=== PATIENT | male | born 1985 | race African-American/Black ===

== ENCOUNTER 2024-01-01 11:56 | Emergency (ER) | payer OTHER, SELFPAY ==
--- NOTE | ~2024-01-01 | XR_ITS ---
XR chest 2V Ordering provider: Kory Burrell MD History: 38 years Male with . cp SINCE THIS MORNING, HX OF SMOKING . Comparison: None. FINDINGS: MEDIASTINUM: The cardiac silhouette is not enlarged. LUNGS: No infiltrates, effusions or pneumothorax. OTHER: No free air under the diaphragm. IMPRESSION: No acute cardiopulmonary pathology. Reviewed, dictated and finalized at location A.
--- NOTE | 2024-01-01 11:57 | ECG_ITS ---
Test Date: 2024-01-01 12:03:22 Measurements Intervals [place] Rate: 73 P: 67 NH: 155 QRS: 66 QRSD: 106 T: 51 QT: 390 QTc: 430 Interpretive Statements SINUS RHYTHM CANNOT R/O SEPTAL INFARCT, AGE INDETERMINATE ABNORMAL ECG No previous ECG available for comparison Electronically Signed On 01-01-2024 12:58:49 CDT by Jakob Kim D.O.
[2024-01-01 11:58] VITALS: BP 103/69; PULSE 74; RESP 11; TEMP 36.3; O2SAT 99
[2024-01-01] MEDS: Please add drug allergy info to patient profile. 1 EACH XX (12:07)
[2024-01-01 12:08] VITALS: PULSE 70; O2SAT 100
[2024-01-01 12:15] LABS: Basophils Percent Auto 0.2 % (0.2-1.2); Eosinophils Absolute Auto 0.1 K/mm3 (0-0.3); Eosinophils Percent Auto 2.2 % (0-4.4); Hematocrit 42.4 % (42.0-52.0); Hemoglobin 14.8 g/dL (14.0-18.0); Immature Granulocyte Absolute 0.02 K/mm3 (0.00-0.031); Immature Granulocyte Percent A 0.3 % (0-0.5); Lymphocytes Percent Auto 31.8 % (18.3-44.2); Mean Corpuscular HGB Conc 34.9 g/dl (32-36); Mean Corpuscular Hemoglobin 29.4 pg (26-34); Mean Corpuscular Volume 84.1 fl (80-100); Mean Platelet Volume 9.4 fl (7.4-10.4); Monocytes Absolute Auto 0.7 K/mm3 (0.1-0.6); Monocytes Percent Auto 11.1 % (2.6-8.5); Neutrophils Absolute Auto 3.3 K/mm3 (1.3-6.7); Neutrophils Percent Auto 54.4 % (45.5-73.1); Platelet Count Result 198 k/mm3 (150-375); Red Blood Count 5.04 M/mm3 (4.6-6.20); Red Cell Distribution Width 17.1 % (11.5-14.5)
[2024-01-01 12:24] LABS: Alanine Aminotransferase 15 U/L (6-50); Albumin Level 4.7 g/dL (3.5-5.1); Alkaline Phosphatase 77 U/L (38-126); Anion Gap 10 mmol/L (4-12); Aspartate Amino Transferase 23 U/L (17-59); Bilirubin,Total 0.4 mg/dL (0.2-1.3); Blood Urea Nitrogen 9 mg/dL (9-20); Calcium 9.2 mg/dL (8.4-10.2); Carbon Dioxide 29 mmol/L (22-30); Chloride 98 mmol/L (98-107); Estimated CRCL calculation 163 ml/min; Estimated Glomerular Filt Rate > 60; Glucose 115 mg/dL (65-110); Lipase 135 U/L (23-300); Potassium 5.1 mmol/L (3.4-5.0); Sodium 137 mmol/L (137-145)
[2024-01-01 12:26] LABS: Partial Thromboplastin Time 29.2 Seconds (22.3-36.8); Prothrombin Time 13.2 Seconds (11.1-14.7)
[2024-01-01 12:36] LABS: Troponin I < 0.012 ng/mL (0.000-0.034)
--- NOTE | 2024-01-01 13:30 | ED.CHESTPAIN ---
HPI - Chest Pain General Chief Complaint: Chest Pain Stated Complaint: cp Time Seen by Provider: 01/01/24 12:02 History of Present Illness HPI narrative: 38-year-old male presenting with chest pain. States that he woke up this morning with heavy chest pain. States that is worse when he lays down. No shortness of breath or lightheadedness. No leg swelling. Not worsened with exertion. States that he did have some fevers and rhinorrhea earlier this week. No cough for sore throat. Complains of some nausea but no vomiting. Related Data Allergies Allergy/AdvReac Type Severity Reaction Status Date / Time No Known Allergies Allergy Verified 01/01/24 12:05 Review of Systems Review of Systems: All systems reviewed & are unremarkable except as noted in HPI and below Exam Narrative: GENERAL: Well-appearing, in no acute distress, pleasant cooperative HEAD: Normocephalic, atraumatic. EYES: PERRLA and EOMI. ENT: Grossly unremarkable NECK: Supple. CHEST: Clear to auscultation. No respiratory distress. +chest wall tenderness along entire sternum and into epigastrium HEART: Regular rate and rhythm. No murmur heard. ABDOMEN: Soft, + mild epigastric tenderness, no guarding or rebound EXTREMITIES: Normal range of motion. No edema. SKIN: Warm, dry, no rash. NEURO: No focal deficits. Alert and oriented x3. PSYCH: Normal mood and affect. Course Vital Signs Vital signs: Vital Signs Temperature 97.4 F L 01/01/24 11:58 Pulse Rate 74 01/01/24 11:58 Respiratory Rate 11 L 01/01/24 11:58 Blood Pressure 103/69 01/01/24 11:58 Pulse Oximetry 99 01/01/24 11:58 Oxygen Delivery Room Air 01/01/24 11:58 Temperature 97.4 F L 01/01/24 11:58 Pulse Rate 62 01/01/24 15:10 Respiratory Rate 23 H 01/01/24 15:10 Blood Pressure 119/69 01/01/24 15:10 Pulse Oximetry 100 01/01/24 15:10 Oxygen Delivery Room Air 01/01/24 12:08 MDM - Chest Pain MDM Narrative Medical decision making narrative: 38-year-old male presenting with chest pain since this morning. Vital signs are within normal limits. Patient is nontoxic and in no acute distress. Exam remarkable for above. He does have reproducible chest pain along his sternum. EKG per my interpretation shows normal sinus rhythm, no ST elevations or depressions. Blood work without significant abnormalities. Troponin undetectable. Patient is positive for COVID-19. Chest x-ray without acute abnormalities. Re-evaluation, the patient states that he feels improved. Discussed the reassuring workup. He is safe for outpatient management. Discussed appropriate supportive care and PCP follow-up. Appropriate return precautions given. Discharged in stable condition. Differential Diagnosis Differential diagnosis: Likely atypical chest pain, costochondritis, chest pain and other (COVID-19, URI) Medical Records Data Attestation: I reviewed the patient's medical records. Lab Data Attestation: I reviewed the patient's lab results. 01/01/24 12:10 01/01/24 12:10 Labs: Lab Results 01/01/24 01/01/24 01/01/24 Range/Units 12:10 13:34 14:54 WBC 6.0 (4.5-10.0) K/mm3 RBC 5.04 (4.6-6.20) M/mm3 Hgb 14.8 (14.0-18.0) g/dL Hct 42.4 (42.0-52.0) % MCV 84.1 (80-100) fl MCH 29.4 (26-34) pg MCHC 34.9 (32-36) g/dl RDW 17.1 H (11.5-14.5) % Plt Count 198 (150-375) k/mm3 MPV 9.4 (7.4-10.4) fl Immature Gran % (Auto) 0.3 (0-0.5) % Neut % (Auto) 54.4 (45.5-73.1) % Lymph % (Auto) 31.8 (18.3-44.2) % [place] % (Auto) 11.1 H (2.6-8.5) % Eos % (Auto) 2.2 (0-4.4) % Baso % (Auto) 0.2 (0.2-1.2) % Lymph # (Auto) 1.90 (0.9-3.2) K/mm3 [place] # (Auto) 0.7 H (0.1-0.6) K/mm3 Eos # (Auto) 0.1 (0-0.3) K/mm3 Baso # (Auto) 0.0 (0.0-0.1) K/mm3 Abs Immat Gran (auto) 0.02 (0.00-0.031) K/mm3 Absolute Neuts (auto) 3.3 (1.3-6.7) K/mm3 Absolute Nucleated RBC 0.000 (0.0-0.012)
[2024-01-01] MEDS: SODIUM CHLORIDE 0.9% IV 1,000 ML 999 ML IV CONT (13:39)
[2024-01-01] MEDS: ONDANSETRON INJ 4 MG/2 ML VIAL IV PUSH (13:40)
[2024-01-01] MEDS: KETOROLAC 15 MG/ML VIAL (*BKC) IV PUSH (13:45)
[2024-01-01] MEDS: MORPHINE SULFATE (*CRX) 4 MG/ML INJ IV PUSH (13:46)
[2024-01-01 13:49] VITALS: BP 121/83; PULSE 62; RESP 10; O2SAT 100
[2024-01-01 14:23] LABS: Influenza A QL RT-PCR Negative (Negative); Influenza B QL RT-PCR Negative (Negative); RSV RNA, RT-PCR Negative (Negative); SARS-CoV-2 RNA PCR Positive (Negative)
--- NOTE | 2024-01-01 14:49 | ECG_ITS ---
Test Date: 2024-01-01 15:00:29 Measurements Intervals [place] Rate: 61 P: 55 MT: 171 QRS: 63 QRSD: 106 T: 51 QT: 416 QTc: 422 Interpretive Statements SINUS RHYTHM POSSIBLE RIGHT VENTRICULAR CONDUCTION DELAY PEAKED T WAVES- CONSIDER HYPERKALEMIA BASELINE ARTIFACT- I, II, III, AVR, AVL, AVF, V1-V6 ABNORMAL ECG Compared to ECG 01/01/2024 12:03:22 NO SIGNIFICANT CHANGE Electronically Signed On 01-01-2024 15:03:48 CDT by Jakob Kim D.O.
[2024-01-01 15:10] VITALS: BP 119/69; PULSE 62; RESP 23; O2SAT 100
[2024-01-01 15:25] LABS: Troponin I < 0.012 ng/mL (0.000-0.034)
[2024-01-01 16:14] VITALS: BP 116/72; PULSE 67; RESP 20; TEMP 36.6; O2SAT 100
== END 2024-01-01 16:22 | disposition home or self-care (01) ==
PROVIDERS: Emergency Medicine; Emergency Provider Emergency Medicine
DX: U07.1 COVID-19 (principal); M94.0 Chondrocostal junction syndrome [Tietze]; R94.31 Abnormal electrocardiogram [ECG] [EKG]
CPT/HCPCS: 36415; 71046; 80053; 83690; 84484; 85025; 85610; 85730; 87637; 93005; 96361; 96374; 96375; 99284; J1885; J2270; J2405; J7030

== ENCOUNTER 2024-04-10 09:32 | Emergency (ER) | payer OTHER, SELFPAY ==
[2024-04-10 09:34] VITALS: BP 119/61; PULSE 68; RESP 18; TEMP 36.3; O2SAT 100
--- NOTE | 2024-04-10 10:07 | PC.NURSE ---
Pt came up to intake stating can you take this out pointing to his IV. pt states he is leaving. PIV removed, pt exits ED in NAD.
== END 2024-04-10 13:13 | disposition left against medical advice (07) ==
DX: R10.9 Unspecified abdominal pain (principal)
CPT/HCPCS: 99199